=== PATIENT | female | born 1950 | race African-American/Black ===

== ENCOUNTER 2022-03-08 22:14 | Observation (INO) | payer OTHER ==
--- NOTE | 2022-03-08 22:59 | RAD REPORT ---
EXAM DESCRIPTION: CT - Head Brain Wo Cont - 03/08/2022 10:51 pm CLINICAL HISTORY: Syncope, simple, abnormal neuro exam COMPARISON: No comparisons TECHNIQUE: All CT scans are performed using dose optimization technique as appropriate and may inclu de automated exposure control or mA/KV adjustment according to patient size. FINDINGS: No intracranial hemorrhage, hydrocephalus or extra-axial fluid collection.No areas of brai n edema or evidence of midline shift. Mild chronic small vessel ischemic changes in cerebral atrophy. Intracranial atherosclerosis. The paranasal sinuses and mastoids are clear. The calvarium is intact. IMPRESSION: No acute intracranial abnormality.
[2022-03-08] MEDS ORDERED: ONDANSETRON 4 MG/2 ML VIAL ONE (23:16)
[2022-03-08] MEDS ORDERED: MORPHINE 4 MG/ML SYR ONE (23:16)
[2022-03-08] MEDS ORDERED: DIPHENHYDRAMINE 50 MG/ML VIAL ONE (23:21)
[2022-03-08] MEDS ORDERED: D10W 250 ML IV ONE (23:24)
[2022-03-08] MEDS ORDERED: MORPHINE 2 MG/ML SYR ONE (23:25)
[2022-03-08 23:52] LABS: Absolute Lymphocytes (CBC) 1.1 K/uL (0.7-4.9); Lymphocytes % 28.3 % (15.3-44.8); RBC Red Blood Cell Count 4.14 M/uL (3.86-4.86)
[2022-03-08 23:57] LABS: Protime INR 1.2
[2022-03-09 00:14] LABS: Albumin 3.2 g/dL (3.4-5.0); Bilirubin Direct 0.1 mg/dL (0-0.2); Bilirubin Total 0.3 mg/dL (0.2-1.0); Magnesium 1.8 mg/dL (1.8-2.4); Potassium 3.3 mmol/L (3.5-5.1); Protein, Total 7.1 g/dL (6.4-8.2); Troponin High Sensitivity 23.3 pg/mL (<58.9)
[2022-03-09 00:26] LABS: Urine Blood 2+ (Negative); Urine Glucose Negative (Negative); Urine Protein 3+ (Negative); Urine pH 7.5 (5.0-7.0)
[2022-03-09] MEDS ORDERED: HYDRALAZINE HCL 20 MG/ML VIAL ONE (00:34)
[2022-03-09 00:35] LABS: Urine Bacteria LOADED /HPF (<20); Urine Mucus 2+ /HPF (NONE SEEN)
[2022-03-09] MEDS ORDERED: NA CHLORIDE 0.9% 50 ML ONE (00:52)
[2022-03-09] MEDS ORDERED: CEFTRIAXONE 1000 MG/VIAL ONE (00:52)
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
[2022-03-09] MEDS ORDERED: ASPIRIN 81 MG CHEWABLE TABLET ONE (01:17)
--- NOTE | 2022-03-09 01:46 | P.HP ---
Certification for Inpatient Patient admitted to: Observation With expected LOS: <2 Midnights Patient will require the following post-hospital care: None Practitioner: I am a practitioner with admitting privileges, knowledge of patient current condition, hospital course, and medical plan of care. Services: Services provided to patient in accordance with Admission requirements found in Title 42 Section 412.3 of the Code of Federal Regulations Patient History Date of Service: 03/09/22 Reason for admission: Hypoglycemia, chest pain, UTI History of Present Illness: 71-year-old female history of chronic systolic heart failure, diabetes most type IIinsulin-dependent, ESRD on HD, hypertension and hyperlipidemia presents emergency department for altered mental status. She was found by EMS to be unresponsive with a blood sugar in the 20s she was given IV dextrose upon arrival to the emergency department her sugar was in the 200s her mental status was improving her further evaluation was significant for redemonstrated ESRD mild hypokalemia glucose continued to drop requiring push doses of dextrose was also found to have urinary tract infection and did complain of chest pain during her stay ED prior wishes to admit for further evaluation of hypoglycemia, chest pain, UTI. - Past Medical/Surgical History -: Diabetes type 2insulin-dependent -: Chronic systolic congestive heart failure -: ESRD on HD TTS -: Hypertension -: hyperlipidemia -: none Psychosocial/ Personal History: Patient lives at home with her , family - Family History Father -: Kidney disease Mother -: Diabetes, Kidney disease - Social History Smoking Status: Former smoker Alcohol use: No CD- Drugs: No Caffeine use: Yes Place of Residence: Home Review of Systems 10-point ROS is otherwise unremarkable Respiratory: Shortness of Breath Cardiovascular: Chest Pain Physical Examination - Physical Exam General: Alert, In no apparent distress, Oriented x2 HEENT: Atraumatic Neck: Supple Respiratory: Diminished, Crackles/rales Cardiovascular: No edema, Normal S1 S2 Capillary refill: <2 Seconds Gastrointestinal: Normal bowel sounds, Soft and benign Musculoskeletal: No contractures, No erythema, No tenderness Integumentary: No significant lesion, No tenderness/swelling, No erythema Neurological: Normal tone, Sensation intact - Studies Laboratory Data (last 24 hrs) 03/08/22 23:35: PT 13.2 H, INR 1.20 03/08/22 23:35: WBC 3.8 L, Hgb 11.9 L, Hct 37.0, Plt Count 218 03/08/22 23:35: Sodium 140, Potassium 3.3 L, BUN 39 H, Creatinine 5.25 H*, Glucose 61 L, Magnesium 1.8, Total Bilirubin 0.3, AST 14 L, ALT 19, Alkaline Phosphatase 73 Assessment and Plan - Plan Assessment: 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 unknown if she took her insulin or how much. Pt received diet in the ED will monitor closely. ESRD on HD TTS: Nephrology consulted, will need dialysis Chronic systolic congestive heart failure: volume mgmt with dialysis, continue home meds. Had recent heart cath at [facility] Chest pain history CAD: Monitor on tele, trend troponin, PRN nitro. Cardiology consult if trop trends up. Hypertension: Continue home meds Hyperlipidemia: continue home meds DVT PPX: Heparin Code status:full Discharge Plan: Home Plan to discharge in: 24 Hours - Advance Directives Does patient have a Living Will: No Does patient have a Durable POA for Healthcare: No - Code Status/Comfort Care Code Status Assessed: Yes (Full code) Critical Care: No Time Spent Managing Pts Care (In Minutes): 70
[2022-03-09] MEDS ORDERED: D10W IV PRN (02:27)
[2022-03-09] MEDS ORDERED: NITROGLYCERIN 0.4 MG/TAB SL PRN (02:27)
[2022-03-09] MEDS ORDERED: LABETALOL 20 MG/4ML SYRINGE IV PRN (02:27)
[2022-03-09] MEDS ORDERED: ONDANSETRON 4 MG/2 ML VIAL IV PRN (02:27)
[2022-03-09] MEDS ORDERED: LABETALOL 20 MG/4ML SYRINGE IV ONE (02:41)
[2022-03-09 03:43] LABS: Absolute Lymphocytes (CBC) 0.6 K/uL (0.7-4.9); Hematocrit 38.9 % (36.0-45.0); Lymphocytes % 12.4 % (15.3-44.8); MPV 8.1 fL (7.6-11.3); RBC Red Blood Cell Count 4.33 M/uL (3.86-4.86)
[2022-03-09 04:07] LABS: Albumin 3.1 g/dL (3.4-5.0); Bilirubin Total 0.3 mg/dL (0.2-1.0); Protein, Total 6.9 g/dL (6.4-8.2); Troponin High Sensitivity 37.8 pg/mL (<58.9)
[2022-03-09 04:37] VITALS: BMI 28.5
[2022-03-09 04:56] VITALS: O2SAT 96
[2022-03-09] MEDS: carvediloL 25 MG TAB PO SCH ×2 (05:43→18:39)
[2022-03-09] MEDS: LOSARTAN POTASSIUM 50 MG TABLET PO SCH ×2 (09:14→21:18)
[2022-03-09] MEDS: HYDRALAZINE HCL 25 MG TABLET PO SCH ×3 (09:14→21:18)
[2022-03-09] MEDS: HEPARIN 5000 UNIT/ML 1 ML VIAL SQ SCH ×2 (09:15→21:18)
[2022-03-09] MEDS: levETIRAcetam 500 MG TAB PO SCH ×2 (09:15→21:17)
[2022-03-09] MEDS: MORPHINE 2 MG/ML SYR IV PRN ×2 (09:15→18:51)
[2022-03-09] MEDS: CLOPIDOGREL 75 MG TABLET PO SCH (09:15)
--- NOTE | 2022-03-09 11:07 | P.PN ---
Subjective Date of Service: 03/09/22 Chief Complaint: Hypoglycemia, chest pain, UTI Subjective: No new changes Physical Examination - Vital Signs Temperature: 97.2 F Blood Pressure: 193/76 Pulse: 67 Respirations: 18 Pulse Ox (%): 99 - Studies Laboratory Data (last 24 hrs) 03/08/22 23:35: PT 13.2 H, INR 1.20 03/08/22 23:35: WBC 3.8 L, Hgb 11.9 L, Hct 37.0, Plt Count 218 03/08/22 23:35: Sodium 140, Potassium 3.3 L, BUN 39 H, Creatinine 5.25 H*, Glucose 61 L, Magnesium 1.8, Total Bilirubin 0.3, AST 14 L, ALT 19, Alkaline Phosphatase 73 Assessment And Plan Physician Review: Patient Assessed, Agree with Above Assessment and Plan Physician Review Additional Text: ysical Exam General: Alert, In no apparent distress, Oriented x2 HEENT: Atraumatic Neck: Supple Respiratory: Diminished, Crackles/rales Cardiovascular: No edema, Normal S1 S2 Capillary refill: <2 Seconds Gastrointestinal: Normal bowel sounds, Soft and benign Musculoskeletal: No contractures, No erythema, No tenderness Integumentary: No significant lesion, No tenderness/swelling, No erythema Neurological: Normal tone, Sensation intact - Studies Laboratory Data (last 24 hrs) 03/08/22 23:35: PT 13.2 H, INR 1.20 03/08/22 23:35: WBC 3.8 L, Hgb 11.9 L, Hct 37.0, Plt Count 218 03/08/22 23:35: Sodium 140, Potassium 3.3 L, BUN 39 H, Creatinine 5.25 H*, Glucose 61 L, Magnesium 1.8, Total Bilirubin 0.3, AST 14 L, ALT 19, Alkaline Phosphatase 73 Assessment and Plan - Plan Assessment: 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
[2022-03-09] MEDS: FAMOTIDINE 20 MG TAB PO SCH ×2 (14:58→21:17)
[2022-03-09] MEDS ORDERED: D50W 25 GM/50 ML SYRINGE IV PRN (20:47)
[2022-03-09] MEDS ORDERED: GLUCAGON 1 MG/VIAL IM PRN (20:47)
[2022-03-09] MEDS ORDERED: D10W 125 ML IV PRN (20:59)
[2022-03-09] MEDS: INSULIN -REGULAR HUMAN 50 UNIT/0.5 ML ML SQ SCH (21:18)
[2022-03-09] MEDS ORDERED: MELATONIN 5 MG TABLET PO PRN (21:43)
[2022-03-10] MEDS ORDERED: CEFTRIAXONE 1,000 MG in NA CHLORIDE 0.9% 50 ML IVPB SCH ×2
[2022-03-10 04:38] LABS: Absolute Lymphocytes (CBC) 1.3 K/uL (0.7-4.9); Hematocrit 36.1 % (36.0-45.0); Lymphocytes % 35.2 % (15.3-44.8); MPV 8.2 fL (7.6-11.3); RBC Red Blood Cell Count 4.03 M/uL (3.86-4.86)
[2022-03-10 04:55] LABS: Albumin 3.1 g/dL (3.4-5.0); Bilirubin Total 0.3 mg/dL (0.2-1.0); Potassium 4.3 mmol/L (3.5-5.1); Protein, Total 6.8 g/dL (6.4-8.2)
[2022-03-10] MEDS: carvediloL 25 MG TAB PO SCH (05:12)
[2022-03-10] MEDS: INSULIN -REGULAR HUMAN 50 UNIT/0.5 ML ML SQ SCH ×2 (07:30→11:30)
[2022-03-10] MEDS: LOSARTAN POTASSIUM 50 MG TABLET PO SCH (09:48)
[2022-03-10] MEDS: levETIRAcetam 500 MG TAB PO SCH (09:48)
[2022-03-10] MEDS: MORPHINE 2 MG/ML SYR IV PRN (09:48)
[2022-03-10] MEDS: CLOPIDOGREL 75 MG TABLET PO SCH (09:48)
[2022-03-10] MEDS: HYDRALAZINE HCL 25 MG TABLET PO SCH (09:48)
[2022-03-10] MEDS: FAMOTIDINE 20 MG TAB PO SCH (09:48)
[2022-03-10] MEDS: HEPARIN 5000 UNIT/ML 1 ML VIAL SQ SCH (09:48)
--- NOTE | 2022-03-10 12:06 | P.DS ---
Admission Date: 03/09/22 Discharge Date: 03/10/22 Disposition: ROUTINE DISCHARGE Discharge Condition: FAIR Reason for Admission: Hypoglycemia, chest pain, UTI Brief History of Present Illness: Reason for admission: Hypoglycemia, chest pain, UTI History of Present Illness: 71-year-old female history of chronic systolic heart failure, diabetes most type IIinsulin-dependent, ESRD on HD, hypertension and hyperlipidemia presents emergency department for altered mental status. She was found by EMS to be unresponsive with a blood sugar in the 20s she was given IV dextrose upon arriv al to the emergency department her sugar was in the 200s her mental status was improving her further evaluation was significant for redemonstrated ESRD mild hypokalemia glucose continued to drop requiring push doses of dextrose was also found to have urinary tract infection and did complain of chest pain during her stay ED prior wishes to admit for further evaluation of hypoglycemia, chest pain, UTI. - Past Medical/Surgical History -: Diabetes type 2insulin-dependent -: Chronic systolic congestive heart failure -: ESRD on HD TTS -: Hypertension -: hyperlipidemia -: none Hospital Course: Hospital course Patient with ESRD, hypertension, diabetes on long-acting insulin Lantus 10 units nightly daily admitted for hypoglycemia with glucose down to 31 but improved. Her long-acting insulin was held. Patient was noted with UTI with gram-negative rods. She was started on Levaquin. She had dialysis done with no issues. She is afebrile and glucose has been ranging in the 170s to 190s now. She will be restarted on reduced dose of Lantus 5 units daily and continue follow-up with her primary at discharge. Vital Signs/Physical Exam: Temp Pulse Resp BP Pulse Ox 97.7 F 66 18 161/72 H 98 03/10/22 08:00 03/10/22 08:00 03/10/22 09:48 03/10/22 08:00 03/10/22 09:48 HEENT: Atraumatic, Normocephalic Neck: Supple, 2+ carotid pulse no bruit, JVD not distended Respiratory: Clear to auscultation bilaterally, Normal air movement Cardiovascular: Regular rate/rhythm, Normal S1 S2 Gastrointestinal: Normal bowel sounds, Soft and benign, Non-distended, No ascites Musculoskeletal: No swelling, No contractures Integumentary: No breakdown, No significant lesion Neurological: Normal gait, Normal speech, Normal strength at 5/5 x4 extr Laboratory Data at Discharge: WBC 3.7 K/uL (4.3-10.9) L D 03/10/22 04:27 Hgb 11.7 g/dL (12.0-15.0) L 03/10/22 04:27 Hct 36.1 % (36.0-45.0) 03/10/22 04:27 Plt Count 215 K/uL (152-406) 03/10/22 04:27 PT 13.2 SECONDS (9.5-12.5) H 03/08/22 23:35 INR 1.20 03/08/22 23:35 Sodium 137 mmol/L (136-145) 03/10/22 04:27 Potassium 4.3 mmol/L (3.5-5.1) 03/10/22 04:27 BUN 34 mg/dL (7-18) H 03/10/22 04:27 Creatinine 5.17 mg/dL (0.55-1.3) H* 03/10/22 04:27 Glucose 88 mg/dL (74-106) 03/10/22 04:27 Magnesium 1.8 mg/dL (1.8-2.4) 03/08/22 23:35 Total Bilirubin 0.3 mg/dL (0.2-1.0) 03/10/22 04:27 AST 10 U/L (15-37) L 03/10/22 04:27 ALT 16 U/L (12-78) 03/10/22 04:27 Alkaline Phosphatase 78 U/L (45-117) 03/10/22 04:27 Home Medications: Aspirin [Aspirin EC 81 MG] 81 mg PO DAILY 03/09/22 Atorvastatin Calcium [Lipitor] 80 mg PO DAILY 03/09/22 Butalbital/Acetaminophen [Butalbital-Acetaminophn 50-300] 1 cap PO Q12H 03/09/22 Calcium Acetate 1,334 mg PO TID 03/09/22 Carvedilol [Coreg] 12.5 mg PO BID 03/09/22 Clopidogrel Bisulfate [Plavix*] 75 mg PO DAILY 03/09/22 Doxazosin Mesylate 8 mg PO DAILY 03/09/22 Hydralazine HCl 100 mg PO Q8H 03/09/22 Hydralazine HCl 100 mg PO Q8H 03/09/22 Insulin Aspart [Novolog Penfill] See Protocol SQ ACHS 03/09/22 Ipratropium [Atrovent 0.03% (21MCG)/[place] Nasal*] 21 mcg LINNEA QID 03/09/22 Losartan Potassium [Cozaar*] 50 mg PO BID 03/09/22 Losartan Potassium [Cozaar*] 50 mg PO BID 03/09/22 NIFEdipine [Adalat cc] 60 mg PO BID 03/09/22 Naloxone HCl 1 spray LINNEA BID PRN 03/09/22 Nifedipine [Nifedipine ER] 60 mg PO BID 03/09/22 Nitroglycerin 1 tab SL PRN PRN 03/09/22 Ondansetron [Zofran (Odt)*] 4 mg PO Q8H PRN 03/09/22 Oxycodone HCl/Acetaminophen [Oxycodone-Acetaminophn 7.5-325] 1 tab PO Q8H PRN 03/09/22 Pantoprazole [Protonix Tab*] 40 mg PO DAILY 03/09/22 Polyethylene Glycol 3350 [Miralax] 17 gm PO DAILY 03/09/22 Promethazine HCl 12.5 mg PO TID 03/09/22 Sodium Bicarbonate 650 mg PO BID 03/09/22 levETIRAcetam [Keppra*] 500 mg PO BID 03/09/22 Insulin Glargine,Hum.rec.anlog [Lantus Solostar] 5 units SQ DAILY #1 bottle 03/10/22 Levofloxacin [Levaquin] 250 mg PO Q48H #3 tablet 03/10/22 New Medications: Insulin Glargine,Hum.rec.anlog [Lantus Solostar] 5 units SQ DAILY #1 bottle Levofloxacin [Levaquin] 250 mg PO Q48H #3 tablet Diet: ADA Activity: Ad jossie Followup: NONE,NONE [Primary Care Provider] - Time spent managing pt's care (in minutes): 35
[2022-03-10 12:21] VITALS: BP 173/76; TEMP 97.5
--- NOTE | 2022-03-11 13:19 | RAD REPORT ---
EXAM DESCRIPTION: RAD - Chest Single View - 03/08/2022 11:54 pm CLINICAL HISTORY: 71 years, Female, syncope COMPARISON: None. FINDINGS: Single view of the chest was obtained portable. No prior films are available for compariso n. The cardiomediastinal silhouette demonstrate to be unremarkable. The heart is not enlarged. The thoracic aorta is tortuous with intimal calcification. Costophrenic angles are sharp. No areas of c onsolidation or masses are seen. The rest of the soft tissue and bony structures demonstrate to be unremarkable. IMPRESSION: No acute cardiopulmonary disease seen. Electronically signed by: Ravi Rodriguez MD 03/09/2022 12:28 AM CDT Due to temporary technical issues with the PACS/Fluency reporting system, reports are being signed by the in house radiologists without review as a courtesy to insure prompt reporting. The interpreting radiologist is fully responsible for the content of the report.
--- NOTE | 2022-03-13 07:57 | EKG ---
Test Date: 2022-03-08 Test Time: 23:53:13 [employer] Dispatcher: JALEEL MEASUREMENT RESULTS: Intervals: Rate: 57 CT: 154 QRSD: 78 QT: 504 QTc: 490 [place]: P: 49 CT: 154 QRS: 18 T: 69 INTERPRETIVE STATEMENTS: Sinus bradycardia with premature atrial complexes Prolonged QT Abnormal ECG No previous ECG available for comparison Electronically Signed On 03-13-22 07:50:59 CDT by Frank Rodriguez
== END 2022-03-10 14:10 | disposition home or self-care (01) ==
LOC: ER 22:14 → ERHOLD 03-09 01:35 → 2ND 03-09 08:21
PROVIDERS: ADMIT Internal Medicine; ATTEND Internal Medicine
DX: E11.649 Type 2 diabetes mellitus with hypoglycemia without coma (principal); N39.0 Urinary tract infection, site not specified; I13.2 Hypertensive heart and chronic kidney disease with heart failure and with stage 5 chronic kidney disease, or end stage renal disease; I50.22 Chronic systolic (congestive) heart failure; N18.6 End stage renal disease; E11.22 Type 2 diabetes mellitus with diabetic chronic kidney disease; Z99.2 Dependence on renal dialysis; R07.9 Chest pain, unspecified; I25.10 Atherosclerotic heart disease of native coronary artery without angina pectoris; E78.5 Hyperlipidemia, unspecified; E87.6 Hypokalemia; Z20.822 Contact with and (suspected) exposure to COVID-19; Z79.4 Long term (current) use of insulin; Z79.02 Long term (current) use of antithrombotics/antiplatelets; Z79.82 Long term (current) use of aspirin; Z79.899 Other long term (current) drug therapy; Z87.891 Personal history of nicotine dependence; Z83.3 Family history of diabetes mellitus; Z84.1 Family history of disorders of kidney and ureter
CPT/HCPCS: 93005; 87088; 85025 ×3; 87086; 80048; 36415 ×2; 83735; 85610; 82947 ×11; 80076; 87077 ×3; 87186 ×3; 84484 ×3; 80053 ×2; 83880; 70450; 71045; 90935; 99283; U0003; J0360; J1200; J1815; J1644 ×4; J2270 ×4; G0378 ×3; 81003; 81015; J2405